=== PATIENT | female | born 2000 | race Caucasian/White ===

== ENCOUNTER 2019-07-16 10:30 | Inpatient (IN) | payer OTHER, MEDICAID, SELFPAY ==
[2019-07-16] VITALS (40 sets, daily range): BP systolic 102–135; BP diastolic 60–82; PULSE 56–103; TEMP 97.7–99.9; O2SAT 92–100; BMI 32.5
[2019-07-16 10:25] LABS: ROM Internal Control Test YES-OK TO RESULT pt. (Internal QC); ROM Patient Test POSITIVE (Negative)
[2019-07-16] MEDS: Lactated Ringers 1,000 ML 50 ML IV (11:00)
[2019-07-16 11:36] LABS: Absolute Lymphocyte Count 1.31 X10^3/uL (0.83-4.51); Absolute Neutrophil Count 5.5 X10^3/uL (2.0-7.7); Basophil# 0.03 X10^3/uL; Basophil% 0.4 % (0-1); Eosinophil# 0.08 X10^3/uL; Hematocrit 31.9 % (37-47); Hemoglobin 10.1 g/dL (12.0-15.0); Lymphocyte # 1.31 X10^3/ul (4.0); Lymphocyte % 16.9 % (19-41); Mean Corp Hgb Conc 31.7 g/dL (32-36); Mean Corpuscular Hgb 26.1 pg (27.0-32.0); Mean Corpuscular Volume 82.4 fL (81-99); Mean Platelet Vol. 11.7 fl (6.2-12.0); Monocyte% 10.3 % (0-10); NRBC Flagged by Analyzer 0 % (0-5); Neutrophil # 5.51 X10^3/uL (2.7-7.7); Platelet Count 177 K/mm3 (150-450); RBC Distribution Width CV 13.4 % (11.6-14.6); RBC Distribution Width SD 39.9 fl (35.1-43.9); Red Blood Count 3.87 M/mm3 (4.2-5.4); White Blood Count 7.8 K/mm3 (4.4-11.0)
[2019-07-16] MEDS: Oxytocin 30 units/NS 500 ml 30 UNITS/500 ML IV.SOLN IV (11:43)
--- NOTE | 2019-07-16 13:29 | PCM.HP.OB ---
History Date of Admission: 07/16/19 Final ELICEO: 08/06/19 Final ELICEO Source: US <20 weeks Gestational age: 37 Weeks and 0 Days History of this : This is a 18 year-old, @ 37 weeks, SROM at home around 0330 07/16/19- not in labor Allergies No Known Allergies Allergy (Verified 07/16/19 10:12) Home Medications: Home Medications Vit No.130/Iron/Folic [ Tablet] 1 ea PO DAILY 07/16/19 Smoking Status: Former smoker Alcohol: None Number of Fetus(es): 1 History Past Pregnancies: Past Pregnancies Delivery Date Name GA/ Weeks Outcome Route Wt Sex Labor Length Anesthesia Delivery Location Provider FOB Labs: O+, GBS neg, HIV neg, HEPB neg, RUB imm Expected Delivery Method: Spontaneous Vaginal Review of Systems Cardiovascular: Denies: Chest Pain Gastrointestinal: Denies: Abdominal Pain Physical Exam General: Alert, Oriented x3 Abdomen: Soft, Non Tender, Non-Distended, Gravid Neurological: Cranial nerves II-XII grossly intact LOCKSTITCH FRONT MAKER: Normal external genitalia Estimated gestational size: Appropriate for gestational size Presentation: Cephalic Cervix Dilation (cm): 1 Station: -2 Effacement (%): 80 Assessment/Plan This is a 18 year-old, @ 37 weeks, SROM at home, not in labor - Medically indicated IOL for SROM 1) admit to L&D 2) monitor FHR/TOCO 3) PITOCIN/GOEL- Placed without difficulty 4) PCN for GBS 5) Epidural if requested 6) anticipate
[2019-07-16] MEDS: 0.9% Saline Lock 10 ML Syringe IV (15:37)
[2019-07-16] MEDS: Lactated Ringers 500 ML 999 ML IV ×2 (16:33→22:02)
[2019-07-16] MEDS: fentaNYL-bupivacaine (epidural) 100 ML BAG EPIDURAL ×2 (17:21→21:33)
[2019-07-16] MEDS: Mag Hydrox/Al Hydrox/Simeth 30 ML UDC PO (20:14)
[2019-07-16] MEDS: Lactated Ringers 1,000 ML 200 ML IV (21:25)
[2019-07-16] MEDS: Ondansetron 4 MG/2 ML Vial IV (22:04)
[2019-07-16] MEDS: Oxytocin 30 units/NS 500 ml 30 UNITS/500 ML IV.SOLN 334 UNITS IV (22:17)
--- NOTE | 2019-07-16 22:30 | PCM.OPRPT ---
Vaginal Delivery Maternal Presentation: Spontaneous Rupture of Membranes, Medically Indicated Induction Method of Induction: Pitocin Medical Reason for Induction: Premature Rupture of Membranes Amniotic Membrane Rupture Type: Spontaneous at home Amniotic Fluid Description: Clear Final ELICEO: 08/04/19 Gestational age: 37 Weeks and 2 Days Date of Procedure: 07/16/19 Pre-Operative Diagnosis: term gestation, PROM Post-Operative Diagnosis: Same, live male Surgery/ Procedure Performed: Vacuum Assisted Vaginal Delivery Type of Anesthesia: Epidural Description of Procedure: FHR with Deep decelerations with contractions- On my arrival head labia approximately 4 to 5 cm with maternal pushing efforts, head in JIMMY position. Soto catheter draining bladder. Pt and FOB were counseled on Vacuum for delivery- agreed for use. Vacuum placed on Flexion point and set at 550mmhg, With one pull head delivered and vacuum was removed. With good maternal pushing efforts and gentle downward traction the anterior shoulder followed by rest of infant body was delivered without complication. PEDS was present for delivery due to category 2 FHR and use of vacuum. Infant was vigorous and placed on mother's chest for immediate skin the skin. Delayed cord clamping was performed. At this time then placenta was delivered without difficulty and intact. Second-degree perineal laceration was appreciated this was repaired with #2 Vicryl suture and 3-0 rapide suture. Presentation: Vertex, JIMMY Placental Delivery Description: Spontaneous Cord Vessel Description: 3 Vessels Cord Entanglement: None Drain: Soto to straight drain Estimated Blood Loss: 300 A gender: Male (1 minute): 9 (5 minute): 10 Episiotomy Description: None Laceration: Perineal Extension/lac - repaired with 2-0 vicryl and 3-0 rapide, 2nd degree Medications given after delivery: IV Pitocin Complications: None
[2019-07-17] VITALS (7 sets, daily range): BP systolic 107–130; BP diastolic 69–76; PULSE 72–83; RESP 16; TEMP 36.5–37.3; O2SAT 98
[2019-07-17] MEDS: 0.9% Saline Lock 10 ML Syringe IV (00:47)
--- NOTE | 2019-07-17 08:51 | PCM.PN.OB ---
Subjective: Doing well per patient and nursing staff. Ambulating and taking PO without difficulty. No complaints. - Physical Exam Vitals/I&O's: Vital Signs Temp Pulse Resp BP 99.2 F H 81 16 116/72 07/17/19 07:50 07/17/19 07:50 07/17/19 07:50 07/17/19 07:50 Oxygen Delivery Method Room Air Weight: 214 lb 1.102 oz Body Mass Index (BMI) 32.5 Intake and Output for Last 24 Hours 07/15/19 07/16/19 07/17/19 23:59 23:59 23:59 Intake Total 4446.30 / 4446.30 333 / 333 Output Total 1700 / 1700 950 / 950 Balance 2746.30 / 2746.30 -617 / -617 General: Oriented x3, Cooperative HEENT: Normocephalic Neck: Trachea Midline Lungs: Clear to auscultation, Normal air movement, No rhonchi, No wheeze Cardiovascular: Regular rate, Regular Rhythm, No murmurs Abdomen: Bowel Sounds Present, Soft, Non Tender Extremities: No edema Psych/Mental Status: Normal Affect, Appropriate Laboratory Results 07/16/19 10:00: Vag Amniotic Fld Detect POSITIVE H 07/16/19 11:00: WBC 7.8, RBC 3.87 L, Hgb 10.1 L, Hct 31.9 L, MCV 82.4, MCH 26.1 L, MCHC 31.7 L, RDW Std Deviation 39.9, RDW Coeff of Darren 13.4, Plt Count 177, MPV 11.7, Immature Gran % (Auto) 0.400, Neut % (Auto) 71.0 H, Lymph % (Auto) 16.9 L, Bland % (Auto) 10.3 H, Eos % (Auto) 1.0, Baso % (Auto) 0.4, Absolute Neuts (auto) 5.5, Absolute Lymphs (auto) 1.31, Nucleated RBC % 0 07/16/19 11:00: Blood Type O POSITIVE, Antibody Screen NEGATIVE Current Medications Acetaminophen (Tylenol) 1,000 mg PO Q8H PRN PRN PRN Reason: Pain Score 1-3/10 Bisacodyl (Dulcolax) 10 mg RECTAL UD PRN PRN Reason: If no BM Dibucaine (Dibucaine) 1 applic TOPICAL TID PRN PRN; Protocol PRN Reason: Discomfort Hydrocortisone (Hytone) 1 applic TOPICAL TID PRN PRN; Protocol PRN Reason: Discomfort Ibuprofen (Motrin) 600 mg PO Q6H PRN PRN PRN Reason: Pain Score 1-3/10 Methylergonovine Maleate (Methergine) 0.2 mg IM X1 PRN PRN Reason: Excess bleeding/uterine atony Ondansetron HCl (Zofran) 4 mg IV Q4H PRN PRN PRN Reason: Nausea Oxycodone HCl (Oxyir) 5 - 10 mg PO Q4H PRN PRN PRN Reason: Pain Score 4-10/10 Senna/Docusate Sodium (Senokot-S, Kelly-Colace) 1 - 2 tablet PO DAILY PRN PRN PRN Reason: Constipation Simethicone (Mylicon) 80 mg PO PCHS PRN PRN Reason: Indigestion/Stomach pain Sodium Chloride () 5 - 15 ml IV UD PRN PRN Reason: SALINE FLUSH Last Admin: 07/17/19 00:47 Dose: 10 ml Documented by: Medical Necessity - Tobacco Use Smoking Status: Former smoker Assessment/Plan A: Day #1 P: 1) Routine care 2) Pain controlled. hemodynamically stable. 3) Planning D/C home tomorrow
[2019-07-18 03:23] VITALS: BP 118/76; PULSE 68; RESP 16; TEMP 37.1
[2019-07-18 09:15] VITALS: BP 116/64; PULSE 79; RESP 20; TEMP 37
--- NOTE | 2019-07-18 13:14 | PN.OBGYN_ITS ---
Subjective: No complaints - Physical Exam Vitals/I&O's: Vital Signs Temp Pulse Resp BP 98.6 F 79 20 H 116/64 07/18/19 09:15 07/18/19 09:15 07/18/19 09:15 07/18/19 09:15 Oxygen Delivery Method Room Air Weight: 214 lb 1.102 oz Body Mass Index (BMI) 32.5 Intake and Output for Last 24 Hours 07/16/19 07/17/19 07/18/19 23:59 23:59 23:59 Intake Total 4446.30 / 4446.30 333 / 333 Output Total 1700 / 1700 950 / 950 Balance 2746.30 / 2746.30 -617 / -617 General: Alert, Oriented x3 Abdomen: Soft, Non Tender, Non-Distended - ff mid & below umb Extremities: No Calf Tenderness Current Medications Acetaminophen (Tylenol) 1,000 mg PO Q8H PRN PRN PRN Reason: Pain Score 1-3/10 Bisacodyl (Dulcolax) 10 mg RECTAL UD PRN PRN Reason: If no BM Dibucaine (Dibucaine) 1 applic TOPICAL TID PRN PRN; Protocol PRN Reason: Discomfort Hydrocortisone (Hytone) 1 applic TOPICAL TID PRN PRN; Protocol PRN Reason: Discomfort Ibuprofen (Motrin) 600 mg PO Q6H PRN PRN PRN Reason: Pain Score 1-3/10 Methylergonovine Maleate (Methergine) 0.2 mg IM X1 PRN PRN Reason: Excess bleeding/uterine atony Ondansetron HCl (Zofran) 4 mg IV Q4H PRN PRN PRN Reason: Nausea Oxycodone HCl (Oxyir) 5 - 10 mg PO Q4H PRN PRN PRN Reason: Pain Score 4-10/10 Senna/Docusate Sodium (Senokot-S, Kelly-Colace) 1 - 2 tablet PO DAILY PRN PRN PRN Reason: Constipation Simethicone (Mylicon) 80 mg PO PCHS PRN PRN Reason: Indigestion/Stomach pain Sodium Chloride () 5 - 15 ml IV UD PRN PRN Reason: SALINE FLUSH Last Admin: 07/17/19 00:47 Dose: 10 ml Documented by: Medical Necessity - Tobacco Use Smoking Status: Former smoker Assessment/Plan PPD#[facility]
--- NOTE | 2019-07-18 13:26 | DCINST_ITS ---
Discharge Diet: No Restrictions Discharge Activity: May Drive, May Shower May resume sexual activity in: 6 weeks Weight Bearing Status: Weight bearing as tolerated Additional Instructions: If you experience any of the following, contact your healthcare provider. * Bleeding that soaks a pad every hour for 2 hours * Fever 100.4 or higher * Unrelieved incision or abdominal pain * Swelling, redness, discharge or bleeding from your incision or episiotomy site * Your incision begins to separate * Problems urinating (including inability to urinate or burning while urinating). * Visual changes * Severe headache * Flu-like symptoms * Pain or redness in one of both of your breasts * Pain, warmth, tenderness or swelling in your legs, especially the calf area * Frequent nausea and vomiting * Symptoms of depression or anxiety If you experience any of the following, call 911 or go to the nearest Emergency Room. * Chest pain * Problems breathing * Seizure activity * Partial or complete paralysis of a body part, slurred speech, weakness or drooping of the face, or a sudden inability to walk or hold your balance Allergies/Adverse Reactions: Allergies No Known Allergies Allergy (Verified 07/16/19 10:12) Medications to take at Discharge Vit No.130/Iron/Folic [ Tablet] 1 ea PO DAILY 07/16/19 Acetaminophen [Tylenol] 1,000 mg PO Q8H PRN PRN tab 07/18/19 Ibuprofen [Motrin] 600 mg PO Q6H PRN PRN tab 07/18/19 Test Results: Test results from this visit will be discussed in further detail at your follow- up appointment, if applicable.
--- NOTE | 2019-07-18 13:26 | PCM.DCVAG ---
Discharge Diet: No Restrictions Discharge Activity: May Drive, May Shower May resume sexual activity in: 6 weeks Weight Bearing Status: Weight bearing as tolerated Additional Instructions: If you experience any of the following, contact your healthcare provider. Bleeding that soaks a pad every hour for 2 hours Fever 100.4 or higher Unrelieved incision or abdominal pain Swelling, redness, discharge or bleeding from your incision or episiotomy site Your incision begins to separate Problems urinating (including inability to urinate or burning while urinating). Visual changes Severe headache Flu-like symptoms Pain or redness in one of both of your breasts Pain, warmth, tenderness or swelling in your legs, especially the calf area Frequent nausea and vomiting Symptoms of depression or anxiety If you experience any of the following, call 911 or go to the nearest Emergency Room. Chest pain Problems breathing Seizure activity Partial or complete paralysis of a body part, slurred speech, weakness or drooping of the face, or a sudden inability to walk or hold your balance Allergies/Adverse Reactions: Allergies No Known Allergies Allergy (Verified 07/16/19 10:12) Medications to take at Discharge Vit No.130/Iron/Folic [ Tablet] 1 ea PO DAILY 07/16/19 Acetaminophen [Tylenol] 1,000 mg PO Q8H PRN PRN tab 07/18/19 Ibuprofen [Motrin] 600 mg PO Q6H PRN PRN tab 07/18/19 Test Results: Test results from this visit will be discussed in further detail at your follow-up appointment, if applicable.
[2019-07-18] MEDS: Senna/Docusate Sodium 1 Tablet PO (15:02)
[2019-07-18 15:06] VITALS: BP 108/57; PULSE 79; TEMP 37.3
== END 2019-07-18 15:30 | disposition home or self-care (01) | DRG 807 ==
LOC: WPOUT 10:42 → WP 10:42
PROVIDERS: Admitting Provider Obstetrics & Gynecology; Visit Provider Obstetrics & Gynecology
DX: O42.02 Full-term premature rupture of membranes, onset of labor within 24 hours of rupture (principal); Z37.0 Single live birth; O76 Abnormality in fetal heart rate and rhythm complicating labor and delivery; O70.1 Second degree perineal laceration during delivery; Z3A.37 37 weeks gestation of pregnancy
CPT/HCPCS: 59025; 59050; 84112; 85025; 86850; 86900; 86901; 99218; J7120; A4216; G0378; J2405

== ENCOUNTER 2022-08-05 09:35 | Inpatient (IN) | payer MEDICAID, SELFPAY ==
--- NOTE | 2022-07-29 15:21 | PCM.HP.BLA ---
History and Physical Date of Admission: 08/05/22 HPI: The patient is a 21 year old female presenting for pre-operative visit. She is scheduled for , for breech on 08/05/22. Procedure discussed along with risks, benefits and complications. Other alternatives discussed for management. Consent form signed? Yes. ? ? PAST MEDICAL HISTORY History reviewed. No pertinent past medical history. ? ? PAST SURGICAL HISTORY PAST SURGICAL HISTORY Procedure Laterality Date ? PAST SURGICAL HISTORY OF ? ? ? moles removed ? ? ? CURRENT MEDICATIONS Current Outpatient Medications Medication Sig Dispense Refill ? famotidine (PEPCID) 40 mg tablet Take 1 tablet by mouth once daily. 30 tablet 0 ? PNV no.95/ferrous fum/folic ac ( ORAL) Take by mouth. ? ? ? No current facility-administered medications for this visit. ? ? ALLERGIES: Patient has no known allergies. ? PERSONAL HISTORY: SOCIAL HISTORY Social History ? Tobacco Use ? Smoking status: Former ? ? Years: 1.00 ? ? Types: Cigarettes ? ? Quit date: 08/26/2018 ? ? Years since quittin.9 ? Smokeless tobacco: Never Substance Use Topics ? Alcohol use: Not Currently ? Drug use: Never ? FAMILY HISTORY: FAMILY HISTORY FAMILY HISTORY Problem Relation Age of Onset ? No Known Problems Mother ? ? Cancer Father ? ? skin cancer ? No Known Problems Sister ? ? No Known Problems Maternal Grandmother ? ? No Known Problems Maternal Grandfather ? ? Parkinsonism Paternal Grandmother ? ? No Known Problems Paternal Grandfather ? ? ? REVIEW OF SYMPTOMS: GENERAL: denies fevers or chills ENDOCRINOLOGY: has not been on steroids Cardiology : denies palpitations or chest pain Respiratory: denies SOB or cough Hematology: denies history of prolonged bleeding or easy bruising or VTE Allergy: Denies history of personal or family history of allergy to anesthesia ? PHYSICAL EXAMINATION: ? VITALS: Blood pressure 118/74, pulse 96, resp. rate 16, height 5' 8 (1.727 m), weight 241 lb (109.3 kg), SpO2 99 %. ? GENERAL: The patient is well nourished, well hydrated in no acute distress. , The patient is oriented to time, place, and person. NECK: Supple. No lynphadenopathy, normal thyroid, no thyromegaly. LUNGS: Clear to auscultation bilaterally. no wheezes, rhonchi or rales HEART: Regular rate and rhythm, Normal heart sounds, and No murmurs or gallops ? IMPRESSION: Estimated Date of Delivery: 08/12/22 Breech ? PLAN: The risks/benefits/alternatives and personal involved for the planned delivery were reviewed with the patient. Her questions were answered to her satisfaction and she desires to proceed. Consent was signed. I reviewed with her postop instructions and expectations. ? ? I have reviewed and updated past medical and surgical history, medications and allergies Assessment & Plan Assessment/Plan (1) Breech presentation of fetus: (2) Supervision of other high risk pregnancies, third trimester: (3) 39 weeks gestation of :
[2022-08-05] VITALS (15 sets, daily range): BP systolic 99–123; BP diastolic 50–77; PULSE 55–91; RESP 14–19; TEMP 36.1–36.4; O2SAT 97–100; BMI 36.9
[2022-08-05] MEDS: Lactated Ringers 1,000 ML 999 ML IV (10:05)
[2022-08-05] MEDS: Acetaminophen 500 MG Tablet 1000 MG PO ×3 (10:32→22:32)
[2022-08-05 10:36] LABS: Absolute Lymphocyte Count 1.48 X10^3/uL (0.83-4.51); Absolute Neutrophil Count 4.2 X10^3/uL (2.0-7.7); Basophil# 0.04 X10^3/uL; Basophil% 0.6 % (0-1); Eosinophil# 0.09 X10^3/uL; Eosinophils% 1.4 % (0-5); Hematocrit 32.4 % (37-47); Hemoglobin 10.4 g/dL (12.0-15.0); Lymphocyte # 1.48 X10^3/ul (0.83-4.51); Lymphocyte % 22.9 % (19-41); Mean Corp Hgb Conc 32.1 g/dL (32-36); Mean Corpuscular Hgb 26.9 pg (27.0-32.0); Mean Corpuscular Volume 83.7 fL (81-99); Mean Platelet Vol. 12.1 fl (6.2-12.0); Monocyte# 0.57 X10^3/uL; Monocyte% 8.8 % (0-10); NRBC Flagged by Analyzer 0 % (0-5); Neutrophil # 4.24 X10^3/uL (2.7-7.7); Neutrophil % 65.8 % (47-70); Platelet Count 214 K/mm3 (150-450); RBC Distribution Width CV 14.2 % (11.6-14.6); Red Blood Count 3.87 M/mm3 (4.2-5.4); White Blood Count 6.5 K/mm3 (4.4-11.0)
[2022-08-05] MEDS: Lactated Ringers 1,000 ML 150 ML IV (10:56)
[2022-08-05 11:35] LABS: Syphilis Antibodies Non-reactive
[2022-08-05] MEDS: Sodium Citrate/Citric Acid 30 ML UDC PO (11:58)
[2022-08-05] MEDS: Cefazolin 2 GM in 0.9% Normal Saline 100 ML IV (12:18)
--- NOTE | 2022-08-05 12:49 | EX.PCM.OBRPT ---
Assessment & Plan (1) Breech presentation of fetus: (2) Supervision of other high risk pregnancies, third trimester: (3) 39 weeks gestation of : Maternal Data Information Final ELICEO: 08/12/22 Gestational age: 39 0/7 Details Operative Information Date of Procedure: 08/05/22 Pre-Operative Diagnosis: breech Post-Operative Diagnosis: same Classification: Scheduled Procedure Type: low transverse welder explosion #1: Nathaly Kern welder explosion #2: Silas Cee MS3 Type of Anesthesia: Spinal Anesthesiologist: Abdullahi Guadalupe Special Medications: duramorph Antibiotic Given: Ancef 2 grams IV x1 Drain: Soto to straight drain Estimated Blood Loss: 700 Fluids Replaced: 1000 Procedure Start Time: 12:31 Procedure Stop Time: 13:03 Time of Delivery: 12:33 Findings Description of Procedure: The patient was taken to the operating room. She was prepped and draped in the dorsal supine position with a leftward tilt. A Pfannenstiel skin incision was made approximately 2 cm above the symphysis pubis and carried through to underlying layer fascia with the scalpel. The fascia was incised incised in the midline and extended laterally with blunt dissection. The fascia was dissected off the rectus muscles with blunt and sharp dissection. The rectus muscles were in the midline and the peritoneum was entered bluntly. The peritoneal incision was stretched and the bladder blade was placed. The uterine incision was made in a low transverse fashion with the scalpel and extended superiorly and inferiorly with blunt dissection. The amniotic membranes were ruptured bluntly and clear amniotic fluid returned. The buttocks were brought through the incision and the legs were swept out individually. The back was held up and a blue towel was placed around the and the arms were swept out across the chest. The head was then delivered in a flexed position with fundal pressure only and no traction on the neck. The mouth and nares were bulb suctioned. The cord was clamped and cut as the infant was stimulated. Cord clamping was delayed. The infant was handed off to the waiting nursing staff. The placenta was delivered with fundal massage and gentle traction in the standard fashion. The uterus was exteriorized and cleared of all clots and debris. The cervix was dilated with a ring forcep. The uterine incision was closed with #1 Vicryl in a running locked fashion. A second layer of the same suture was used in an imbricating fashion to obtain hemostasis. The incision was examined and was found to be hemostatic. The uterus was placed back into the peritoneal cavity and hemostasis was again confirmed. The rectus muscles were examined and any bleeding was Bovie cauterized. The parietal peritoneum and rectus muscles were closed en bloc with an 0 Vicryl running suture. The surgical teams outer gloves were then changed. The rectus fascia was examined and any bleeding was Bovie cauterized and the rectus fascia was closed with 1 Vicryl suture in a running standard fashion. The subcutaneous tissue was examining and any bleeding was Bovie cauterized. The subcutaneous tissue was reapproximated with 3-0 Vicryl suture. The skin was closed in a subcuticular fashion by the SHORT HAUL DRIVER with me present in the labor and delivery suite. I performed the remainder of the procedure with assistance. All sponge, lap, and needle counts were correct. The patient was taken to her room for recovery in a stable condition. Presentation: Positive for Complete Breech Amniotic Membrane Rupture Type: Artificial Amniotic Fluid Description: Clear Placental Delivery Description: Expressed Placenta Disposition: [facility] Specimen(s) Sent to Pathology: none Cord Vessel Description: 3 Vessels Cord Entanglement: None Infant A Gender: Male (1 minute): 8 (5 minute): 9 Delayed Cord Clamping: No Complications Complications: none Admit VTE Documentation VTE Present on Admission: No VTE Mechan Device Prophylaxis: [facility] [place] Prophylaxis Ordered: Yes
[2022-08-05] MEDS: Oxytocin 15 Units/NS 250ml 15 UNITS/250 ML IV.SOLN 83 UNITS IV (13:20)
[2022-08-05] MEDS: Ketorolac 30 MG/ML Syringe IV ×2 (13:46→19:55)
[2022-08-05] MEDS: Lactated Ringers 1,000 ML 100 ML IV (16:22)
[2022-08-05] MEDS: Ondansetron 4 MG/2 ML Vial IV (18:33)
[2022-08-06] MEDS: Enoxaparin 40 MG/0.4 ML Syringe SC (00:26)
[2022-08-06 00:35] VITALS: BP 119/58; PULSE 71; RESP 16; TEMP 36.3; O2SAT 100
[2022-08-06] MEDS: Ketorolac 30 MG/ML Syringe IV ×2 (01:54→08:24)
[2022-08-06] MEDS: 0.9% Saline Lock 10 ML Syringe IV ×2 (01:55→08:24)
[2022-08-06 04:15] VITALS: BP 109/57; PULSE 71; RESP 17; TEMP 36.4; O2SAT 98
[2022-08-06 04:26] LABS: Hemoglobin 8.9 g/dL (12.0-15.0); Mean Corp Hgb Conc 31.8 g/dL (32-36); Mean Corpuscular Hgb 26.6 pg (27.0-32.0); Mean Corpuscular Volume 83.8 fL (81-99); Mean Platelet Vol. 11.7 fl (6.2-12.0); Platelet Count 186 K/mm3 (150-450); RBC Distribution Width CV 14.1 % (11.6-14.6); RBC Distribution Width SD 42.5 fl (35.1-43.9); Red Blood Count 3.34 M/mm3 (4.2-5.4); White Blood Count 9.2 K/mm3 (4.4-11.0)
[2022-08-06] MEDS: Acetaminophen 500 MG Tablet 1000 MG PO ×2 (04:42→11:14)
[2022-08-06 08:15] VITALS: BP 94/58; PULSE 78; RESP 20; TEMP 36.3
--- NOTE | 2022-08-06 08:41 | PCM.DC.SUM ---
Providers Date of Admission: 08/05/22 Reason For Visit: PRIMARY C SECTION,CSECTION DELIVERY Diagnosis Discharge Diagnosis (1) Breech presentation of fetus: Status: Acute Code(s): O32.1XX0 - Maternal care for breech presentation, not applicable or unspecified (2) Supervision of other high risk pregnancies, third trimester: Status: Acute Code(s): O09.893 - Supervision of other high risk pregnancies, third trimester (3) 39 weeks gestation of : Status: Acute Code(s): Z3A.39 - 39 weeks gestation of Medications at Discharge Home Medications vits no.130-ferrous fum 27 mg iron-folic acid 800 mcg tablet 1 ea PO DAILY 07/16/19 acetaminophen 500 mg tablet 1,000 mg PO Q8H PRN PRN Pain Score 1-07/2407/18/19 ibuprofen 600 mg tablet 600 mg PO Q6H PRN PRN Pain Score 1-07/2407/18/19 famotidine 20 mg tablet (Pepcid) 10 mg PO DAILY Check with primary doctor 08/05/22 Hospital Course Operations section Summary of Care Provided Hospital Course: Patient was here for primary section for breech presentation. Hospital course was uneventful. Physical Exam Narrative Dressing is dry and intact. Patient seen at bedside. Pain controlled. Ambulating and voiding without difficulty. Denies any headache, dizziness, SOB, or CP. independently. Desires discharge home after 24 hours. Const alert and no apparent distress General Appearance: cooperative and comfortable Exam Limitations: no limitations HEENT normocephalic Eyes General Eye: normal appearance of both eyes Neck full ROM General: normal visual inspection Chest Chest: symmetrical chest wall rise Resp normal respiratory effort and normal air movement Effort and Inspection: symmetric chest movement Auscultation: clear to auscultation bilaterally Cardio regular rate and regular rhythm GI normal to inspection, nondistended, normoactive bowel sounds Back/Spine normal ROM Extremity full ROM and no calf tenderness General Extremity: normal exam except as noted Skin no rashes or lesions noted Neuro CN's II-XII intact bilaterally Psych mental status grossly normal Weight / BMI Weight Weight: 242 lb 15.19 oz Body Mass Index (BMI) 36.9 ABG / Lab / Microbiology Data Result Diagrams: 08/06/22 04:20 Laboratory: Laboratory Results - last 24 hr 08/05/22 10:05: WBC 6.5, RBC 3.87 L, Hgb 10.4 L, Hct 32.4 L, MCV 83.7, MCH 26.9 L, MCHC 32.1, RDW Std Deviation 43.0, RDW Coeff of Darren 14.2, Plt Count 214, MPV 12.1 H, Immature Gran % (Auto) 0.500, Neut % (Auto) 65.8, Lymph % (Auto) 22.9, [place] % (Auto) 8.8, Eos % (Auto) 1.4, Baso % (Auto) 0.6, Absolute Neuts (auto) 4.2, Absolute Lymphs (auto) 1.48, Nucleated RBC % 0 08/05/22 10:05: Blood Type O POSITIVE, Antibody Screen NEGATIVE 08/05/22 10:05: Syphilis Total Ab Non-reactive 08/06/22 04:20: WBC 9.2, RBC 3.34 L, Hgb 8.9 L, Hct 28.0 L, MCV 83.8, MCH 26.6 L, MCHC 31.8 L, RDW Std Deviation 42.5, RDW Coeff of Darren 14.1, Plt Count 186, MPV 11.7 D/C Instructions Discharge Diet: No restrictions Discharge Activity: May Not Drive (2 weeks) and May Shower May resume sexual activity in: 6-8 weeks Weight Bearing Status: Weight bearing as tolerated Call your doctor if your incision/area has: Continuous Slow Oozing, Sudden Increased Bleeding, Increased Pain/ Swelling, Increased Redness, Foul Smelling Discharge and Swelling at the incision site Call your doctor if you observe: Fever of 101 or Higher, Inability to urinate, Inability to have a bowel movement, Using more than 1 pad per hour, Shortness of breath, Dizziness, Chest pain, Calf discomfort and Uncontrolled pain Suture Line Care: Avoid Pulling/Pushing Change Dressing in: leave in place till F/U Remove Dressing in: leave in place till F/U Cleanse incision/area with: Soap & Water Please Follow Up With: Nikkie Olivas MD When: 1 week for incision check Meaningful Use Info Meaningful Use Diagnoses (Choose all that apply): None applicable Discharge Plan Admission Admit Date/Time: 08/05/22 09:35 Primary Reason for Your Visit: Primary section Attending Provider: Brendon,Nikkie Discharge Orders/Prescriptions Prescriptions: Continued vit no.[id number] 1 EACH tablet 1 ea PO DAILY acetaminophen 500 MG tablet 1,000 mg PO Q8H PRN PRN (Reason: Pain Score 1-3/10) 0RF ibuprofen 600 MG tablet 600 mg PO Q6H PRN PRN (Reason: Pain Score 1-3/10) 0RF famotidine [Pepcid] 20 mg Tablet 10 mg PO DAILY Disposition Disposition (needs filled in before D/C Order can be placed): Home, Self Care
[2022-08-06] MEDS: Senna/Docusate Sodium 1 Tablet PO (11:13)
[2022-08-06] MEDS: Ibuprofen 600 MG Tablet PO (13:47)
[2022-08-06 14:00] VITALS: BP 117/72; PULSE 74; RESP 16; TEMP 36.1
== END 2022-08-06 14:45 | disposition home or self-care (01) | DRG 540 ==
PROVIDERS: Admitting Provider Obstetrics & Gynecology; Referring Provider Obstetrics & Gynecology; Visit Provider Obstetrics & Gynecology
PROC: 10D00Z1 Extraction of Products of Conception, Low, Open Approach (ICD-10-PCS; CPT 59514; principal; 2022-08-05 11:45)
DX: O32.1XX0 Maternal care for breech presentation, not applicable or unspecified (principal); Z37.0 Single live birth; Z3A.39 39 weeks gestation of pregnancy; Z87.891 Personal history of nicotine dependence
CPT/HCPCS: 59050; 85025; 85027; 86780; 86850; 86900; 86901; 99221; 99252; J7120; A4216; G0378; G0463; J2405